=== PATIENT | female | born 1990 | race Caucasian/White ===

== ENCOUNTER 2021-10-31 16:08 | Observation (INO) ==
[2021-10-31] MEDS ORDERED: DILTIAZEM 25 MG/5 ML VIAL IV STA ×2 (16:31→16:35)
[2021-10-31] MEDS ORDERED: SODIUM CHLORIDE 0.9% 1,000 ML IV STA (16:32)
[2021-10-31] MEDS ORDERED: DILTIAZEM 25 MG/5 ML VIAL IV ONE ×2 (16:32→22:30)
[2021-10-31] MEDS ORDERED: ASPIRIN 325 MG TABLET PO STA (16:33)
[2021-10-31] MEDS ORDERED: METOPROLOL TARTRATE 5 MG/5 ML VIAL IV ONE (16:46)
[2021-10-31 16:52] LABS: Calcium 9.3 MG/DL (8.5-10.1); Osmolality,Calculated 276.5 MOS/KG (273-304); Potassium 3.6 MMOL/L (3.5-5.1)
[2021-10-31 16:55] LABS: Basophils % 0.3 % (0.0-0.8); Eosinophils # 0.1 10*3/uL (0.0-0.87); Eosinophils % 0.6 % (0.00-10.9); Hematocrit 45.7 VOL% (35.7-47.0); Hemoglobin 15.3 GM/DL (12.0-16.0); Immature Granulocytes % 0.2 %; Immature Granulocytes Absolute 0.02 #; Lymphocytes # 2.4 10*3/uL (1.4-4.0); Lymphocytes % 25.9 % (21.3-54.2); Mean Corpuscular HGB Conc 33.5 GM/DL (32-36); Mean Corpuscular Volume 99.1 FL (87-102); Mean Platelet Volume 10.9 FL (9.6-12.0); Monocytes # 0.6 10*3/uL (0.11-0.8); Monocytes % 6.2 % (1.7-12.7); Neutrophils % 66.8 % (38.7-73.9); Platelet Count 294 T/CUMM (130-400); Red Blood Count 4.61 MC/CUMM (3.8-5.5); Red Cell Distribution Width 12.6 % (9.3-17.3); White Blood Count 9.4 T/CUMM (4-12)
[2021-10-31] MEDS ORDERED: DILTIAZEM 30 MG TABLET PO STA (17:06)
[2021-10-31 17:08] LABS: Free T4 (Free Thyroxine) 1.02 NG/DL (0.76-1.46); Thyroid Stimulating Hormone 1.52 uIU/ml (0.358-3.74)
[2021-10-31] MEDS ORDERED: ACETAMINOPHEN 325 MG TABLET PO PRN (17:37)
[2021-10-31] MEDS ORDERED: ONDANSETRON 4 MG/2 ML VIAL IV PRN (17:37)
[2021-10-31] MEDS ORDERED: DILTIAZEM 25 MG/5 ML VIAL IV PRN (17:40)
[2021-10-31] MEDS: METOPROLOL TARTRATE 5 MG/5 ML VIAL IV STA ×2 (17:41→18:34)
[2021-10-31] MEDS ORDERED: POTASSIUM CHLORIDE 20 MEQ TABLET PO ONE (22:13)
[2021-10-31] MEDS ORDERED: ASPIRIN 325 MG TABLET PO ONE (22:15)
[2021-10-31] MEDS ORDERED: DILTIAZEM INJ 100 MG in SODIUM CHLORIDE 0.9% 100 ML IV SCH (22:30)
[2021-11-01] MEDS ORDERED: DILTIAZEM 30 MG TABLET PO SCH (06:00)
[2021-11-01 07:43] VITALS: BP 112/82
[2021-11-01] MEDS ORDERED: POTASSIUM CHLORIDE 10 MEQ TABLET PO ONE ×2 (07:49→10:30)
[2021-11-01 08:28] LABS: Barbiturates Screen,Urine Negative (Negative); Benzodiazepines Screen,Urine Negative (Negative); Cannabinoid Screen,Urine Negative (Negative); Opiate Screen,Urine Positive (Negative); Phencyclidine Screen,Urine Negative (Negative)
[2021-11-01] MEDS ORDERED: PANTOPRAZOLE 40 MG TABLET PO SCH (09:00)
[2021-11-01] MEDS ORDERED: ASCORBIC ACID 500 MG TABLET PO SCH (09:00)
[2021-11-01] MEDS ORDERED: FLECAINIDE 50 MG TABLET PO SCH (09:00)
[2021-11-01] MEDS ORDERED: DILTIAZEM CD 120 MG CAPSULE PO SCH (09:00)
[2021-11-01] MEDS ORDERED: ASPIRIN EC 81 MG TABLET PO SCH (09:00)
== END 2021-11-01 12:14 | disposition home or self-care (01) ==
LOC: N.ED 16:08 → N.EDINP 16:08 → N.TELES 20:16
PROVIDERS: ADMIT Internal Medicine Cardiovascular Disease; ATTEND Internal Medicine Cardiovascular Disease